=== PATIENT | female | born 1945 | race Caucasian/White ===

== ENCOUNTER 2016-08-08 13:06 | Emergency (ER) | payer MEDICARE, BC ==
--- NOTE | 2016-08-08 14:29 | ER PHYSICIAN DOCUMENTATION ---
Physician Documentation [facility] Name:Lenora James Age:70 yrs Sex:Female :1945 Arrival Date:08/08/2016 Time:13:06 Bed4 Private MD:Gabbi Toscano ED, John Disposition: 08/08/16 14:01 Discharged to Home/Self Care. Impression: Ankle Sprain. - Condition is Good. - Discharge Instructions: AIR STIRRUP ANKLE SPLINT, CRUTCH WALKING. - Medical Reconciliation form form. - Follow up: Melvin Rivera MD, Jalil Mejias DO; When: 1 week; Reason: Continuance of care. - Problem is new. - Symptoms have improved. HPI: 08/08 14:37 This 70 yrs old Female presents to ER via Private Vehicle with complaints of jm Ankle Injury - LEFT. 14:37 The patient presents with an injury, pain. The complaints affect the left ankle, left jm lateral ankle. Onset: The symptom(s)/episode began/occurred 2 hour(s) ago. Context: The mechanism of injury involved inversion of the affected ankle. Historical: - Allergies: Aleve; Codeine; - Home Meds: 1. Zoloft 25 mg oral tab 1 tab once daily 2. sertraline 25 mg oral tab 1 tab once daily 3. trazadone - PMHx: DEPRESSION; ANXIETY; insomnia; - PSHx: Tonsillectomy; Appendectomy; Hysterectomy; - Tetanus: < 10 years. - Ebola Screening: : Patient negative for fever greater than or equal to 101.5 degrees Fahrenheit, and additional compatible Ebola Virus Disease symptoms. Patient denies exposure to infectious person. Patient denies travel to an Ebola-affected area in the 21 days before illness onset. . - Immunization history: Pneumococcal vaccine is up to date, Flu Vaccine < 1 year. - Social history: Smoking status: Patient states former smoker of tobacco. ROS: 14:37 Constitutional: Negative for fatigue, fever. jm 14:37 MS/extremity: Positive for injury or acute deformity. 14:37 Skin: Positive for swelling. Exam: 14:37 Constitutional: The patient appears alert, awake. jm 14:37 Musculoskeletal/extremity: Extremities: grossly normal except: noted in the left lateral ankle: decreased ROM, ecchymosis, pain, swelling, Pulses: are normal with no appreciated deficits, Sensation intact. Weight bearing: can bear weight with assistance only, uses crutches. 14:37 Skin: Appearance: Color: pink, ecchymosis, noted on the, left lateral ankle, that are mild, swelling, noted on the left lateral ankle, that are moderate, no rash present. 14:37 Neuro: Mentation: is normal, Memory: is normal. 14:37 Psych: Behavior/mood is cooperative, Affect is calm. Vital Signs: 13:16 BP 138 / 75; Pulse 82; Resp 16; Temp 98.9; Pulse Ox 95% on R/A; Weight 48.08 kg; Height rh 5 ft. 0 in. (152.40 cm); Pain 9/10; 13:16 Body Mass Index 20.70 (48.08 kg, 152.40 cm) rh MDM: 13:11 Patient medically screened. 14:40 Differential diagnosis: fracture, sprain. Data reviewed: vital signs, nurses notes, radiologic studies, and as a result, I will discharge patient. Test interpretation: by ED physician or midlevel provider: plain radiologic studies. Counseling: I had a detailed discussion with the patient and/or guardian regarding: the historical points, exam findings, and any diagnostic results supporting the discharge/admit diagnosis. Counseling: I had a detailed discussion with the patient and/or guardian regarding: radiology results, the need for outpatient follow up, with the patient's primary care provider, a orthopedic surgeon. 08/08 16:14 Order name: ANKLE; [address] [id number] EDAK 08/08 13:49 Order name: Ice Packs; Complete Time: 13:49 lp Dispensed Medications: 13:47 Drug: HYDROcodone-acetaminophen 5 mg-325 mg 1 tabs; Route: PO; lp 14:28 Follow up: Response: Pain is decreased lp Signatures: Tara Gallegos RN RN Daniel Luna MD MD jm
--- NOTE | 2016-08-08 14:29 | ER NURSING DOCUMENTATION ---
Nurse's Notes [facility] Name:Lenora James Age:70 yrs Sex:Female :1945 Arrival Date:08/08/2016 Time:13:06 Bed4 Private MD:Gabbi Toscano Diagnosis:Ankle Sprain Presentation: 08/08 13:14 Presenting complaint: Patient states: L ankle pain after rolling ankle. Transition of lp care: Home. 13:14 Acuity: VIVIAN 3 lp 13:14 Method Of Arrival: Private Vehicle lp Triage Assessment: 13:17 General: Appears in no apparent distress, Behavior is appropriate for age. Pain: lp Complains of pain in left lateral ankle, left Achilles, left medial ankle and anterior aspect of left ankle. EENT: No deficits noted. Musculoskeletal: Circulation, motion, and sensation intact Capillary refill Range of motion limited in left ankle Historical: - Allergies: Aleve; Codeine; - Home Meds: 1. Zoloft 25 mg oral tab 1 tab once daily 2. sertraline 25 mg oral tab 1 tab once daily 3. trazadone - PMHx: DEPRESSION; ANXIETY; insomnia; - PSHx: Tonsillectomy; Appendectomy; Hysterectomy; - Tetanus: < 10 years. - Ebola Screening: : Patient negative for fever greater than or equal to 101.5 degrees Fahrenheit, and additional compatible Ebola Virus Disease symptoms. Patient denies exposure to infectious person. Patient denies travel to an Ebola-affected area in the 21 days before illness onset. . - Immunization history: Pneumococcal vaccine is up to date, Flu Vaccine < 1 year. - Social history: Smoking status: Patient states former smoker of tobacco. Screenin:18 Infectious Disease Risk None. Abuse screen: Denies threats or abuse. Denies injuries lp from another. Nutritional screening: No deficits noted. Vital Signs: 13:16 BP 138 / 75; Pulse 82; Resp 16; Temp 98.9; Pulse Ox 95% on R/A; Weight 48.08 kg; Height rh 5 ft. 0 in. (152.40 cm); Pain 9/10; 13:16 Body Mass Index 20.70 (48.08 kg, 152.40 cm) rh ED Course: 13:09 Patient arrived in ED. philip 13:10 Gabbi Toscano MD is Private Physician. jl 13:14 Tara Gallegos, RN is Primary Nurse. lp 13:15 Triage completed. lp 13:15 Daniel Harrison MD is Attending Physician. 13:16 Affected limb iced. Affected limb elevated. 13:[address] Harrison notified. lp 13:18 Valuables Remains with patient Patient has correct armband on for positive lp identification. Placed in gown. Bed in low position. Call light in reach. 13:30 Patient moved to radiology. ms 13:40 Patient moved back from radiology. ms 14:00 Melvin Rivera MD, Jalil Mejias DO is Referral Physician. Administered Medications: 13:47 Drug: HYDROcodone-acetaminophen 5 mg-325 mg 1 tabs; Route: PO; lp 14:28 Follow up: Response: Pain is decreased lp Outcome: 14:01 Discharge ordered by . jm 14:28 Discharged to home ambulatory. lp 14:28 Condition: good 14:28 Instructed on crutch walking, discharge instructions, follow up and referral plans. 14:29 Patient left the ED. lp 08/09 09:30 Discharge F/U Call: Unable to reach: no answer st Signatures: Vanda Marrero, RN RN Tara Del Toro, RN RN Daniel Luna MD MD jm Strickland, Mary ms Hofsess, Rachel Suleiman Coello
--- NOTE | 2016-08-08 15:35 | RADIOLOGY REPORT ---
Three views of the left ankle demonstrate no displaced fracture or dislocation. The mortise and talar dome are intact. The visualized joints appear unremarkable. IMPRESSION: No displaced injury is identified. If clinically indicated, further evaluation and/or follow-up may be of benefit. NINI
== END 2016-08-08 14:29 | disposition home or self-care (01) ==
LOC: ER 13:06
DX: S96.912A Strain of unspecified muscle and tendon at ankle and foot level, left foot, initial encounter (principal); W18.49XA Other slipping, tripping and stumbling without falling, initial encounter; Y93.01 Activity, walking, marching and hiking; Z79.899 Other long term (current) drug therapy
CPT/HCPCS: 73610; 99283